=== PATIENT | female | born 1960 | race Caucasian/White ===

== ENCOUNTER 2021-06-30 11:04 | Emergency (ER) | payer MEDICAID ==
[~2021-06-30] VITALS: Ht 154.9 cm; Wt 100.0 kg
[2021-06-30 11:09] VITALS: BP 143/83
[2021-06-30] MEDS ORDERED: HYDR25TA PO (11:15)
[2021-06-30] MEDS ORDERED: BECL10.6 IH (11:15)
[2021-06-30] MEDS ORDERED: BENA10TA74 PO (11:15)
[2021-06-30 11:52] LABS: EOSINOPHILS % 1.1 % (0.0-5.0); HEMATOCRIT. 29.3 % (36.0-48.0); HEMOGLOBIN. 9.3 g/dL (12.0-16.0); LYMPHOCYTES % 27.8 % (20.0-50.0); MEAN CORPUSCULAR HEMOGLOBIN 20.9 pg (28.0-32.0); MEAN CORPUSCULAR VOLUME 65.9 fL (81.0-99.0); MEAN PLATELET VOLUME 7.7 fl (7.4-10.4); MONOCYTES % 5.9 % (2.0-8.0); NEUTROPHILS % 64.2 % (40.0-76.0); PLATELET 587 x1000/uL (130-400); RED BLOOD CELL COUNT 4.45 mill/uL (4.2-5.4); RED CELL DISTRIBUTION WIDTH 18.3 % (11.6-14.6)
[2021-06-30 12:01] LABS: CHLORIDE 99 mEq/L (98-107)
[2021-06-30] MEDS ORDERED: ALBUTEROL (0.083%) 2.5MG/3ML NEB HHN ONE (12:30)
[2021-06-30] MEDS ORDERED: LORAZEPAM 2MG/ML CPJ IV ONE (12:30)
[2021-06-30 12:36] LABS: PLATELET ESTIMATE INCREASED
[2021-06-30] MEDS ORDERED: SODIUM CHLORIDE 0.9% 500 ML IV ONE (12:45)
[2021-06-30] MEDS ORDERED: INSULIN REGULAR (HUMULIN R) 300UNITS/3ML VIAL SUBCUT ONE (13:00)
[2021-06-30] MEDS ORDERED: ASPI-1497 MT (15:27)
== END 2021-06-30 16:49 | disposition home or self-care (01) ==
LOC: ER 11:54
DX: R07.2 Precordial pain (principal); R06.02 Shortness of breath; F41.0 Panic disorder [episodic paroxysmal anxiety]; R00.0 Tachycardia, unspecified; I10 Essential (primary) hypertension; E11.65 Type 2 diabetes mellitus with hyperglycemia; T50.2X5A Adverse effect of carbonic-anhydrase inhibitors, benzothiadiazides and other diuretics, initial encounter; D64.9 Anemia, unspecified; I44.4 Left anterior fascicular block; J45.909 Unspecified asthma, uncomplicated; Y92.018 Other place in single-family (private) house as the place of occurrence of the external cause
CPT/HCPCS: 36415; 71045; 80053; 82962; 83880; 84484; 85025; 93005; 94640; 96361; 96372; 96374; 99285; J1815; J2060; J7040; Z7610